=== PATIENT | female | born 1995 | race African-American/Black ===

== ENCOUNTER 2018-05-10 19:04 | Emergency (ER) | payer OTHER ==
[~2018-05-10] VITALS: Ht 152.4 cm; Wt 40.8 kg
[2018-05-10 19:49] VITALS: BP 153/65; Ht 152.4 cm; Wt 40.8 kg
== END 2018-05-10 19:54 | disposition left against medical advice (07) ==
LOC: ED 19:04
DX: Z53.21 Procedure and treatment not carried out due to patient leaving prior to being seen by health care provider (principal)